=== PATIENT | male | born 1945 | race Two or more races ===

== ENCOUNTER 2020-06-15 10:32 | Outpatient (CLI) | payer MEDICARE, BC | END 2020-06-15 23:59 | disposition home or self-care (01) | LOC: XRAY 10:32 | DX: S59.902A Unspecified injury of left elbow, initial encounter (principal); M19.022 Primary osteoarthritis, left elbow; X58.XXXA Exposure to other specified factors, initial encounter; Y93.89 Activity, other specified; Y92.89 Other specified places as the place of occurrence of the external cause; Y99.8 Other external cause status | CPT/HCPCS: 73080 ==